=== PATIENT | female | born 1980 | race Hispanic/Latino ===

== ENCOUNTER 2018-11-18 23:41 | Emergency (ER) | payer OTHER ==
[2018-11-19] MEDS ORDERED: FENTANYL CITRATE PF 50 MCG/1 ML 2ML VIAL ONE (01:55)
[2018-11-19] MEDS ORDERED: LIDOCAINE PF 2% 5ML ABBOJECT ONE (15:40)
== END 2018-11-19 00:20 | disposition home or self-care (01) ==
LOC: EDH 23:41
DX: R13.10 Dysphagia, unspecified (principal); E11.9 Type 2 diabetes mellitus without complications; Z87.442 Personal history of urinary calculi; Z90.49 Acquired absence of other specified parts of digestive tract; Z91.013 Allergy to seafood; Z79.84 Long term (current) use of oral hypoglycemic drugs; Z98.890 Other specified postprocedural states
CPT/HCPCS: 99281; J2001; J3010